=== PATIENT | male | born 1990 | race Caucasian/White ===

== ENCOUNTER 2023-11-01 09:35 | Inpatient (IN) | payer BC ==
[~2023-11-01] VITALS: Ht 180.3 cm; Wt 90.9 kg
[2023-11-01] VITALS (7 sets, daily range): BP systolic 171–193; BP diastolic 105–122; PULSE 78–111; TEMP 97.5–98.5
[~2023-11-01 09:35] MED LIST: DESYREL 100MG100 MG PO; DUO-KAPS1 CAP PO; FOLIC ACID 11 MG/TA1 PO; INDERAL 10MG10 MG PO; MOBIC 7.5MG7.5 MG PO; THIAMINE 1100 MG/TAB PO; Thiamine 100 MG TAB PO SCH; ZOLOFT 100MG100 MG PO
[2023-11-01 11:50] LABS: BASO # 0.1 K/mm3 (0.0-0.2); BASO % 0.5 % (0.0-2.0); EOS % 0.3 % (0.0-4.0); GRAN # 8.9 K/mm3 (1.4-6.5); GRAN % 81.3 % (42.2-75.2); HEMATOCRIT 37.3 % (42.0-52.0); HEMOGLOBIN 13.4 g/dl (13.5-18.0); LYMPH # 1.1 K/mm3 (1.2-3.4); LYMPH % 10.3 % (20.0-51.0); MEAN CELL VOLUME 91 fl (80.0-100.0); MEAN CORPUSCULAR HEMOGLOBIN 33 pg (27-31); MEAN CORPUSCULAR HGB CONC 36 g/dl (33.0-37.0); MEAN PLATELET VOLUME 8.7 fl (7.4-10.4); MONO # 0.8 K/mm3 (0.1-0.6); MONO % 7.1 % (1.7-9.3); PLATELET COUNT 196 K/mm3 (130-400); REDCELL DISTRIBUTION WIDTH-CV 16.1 % (11.5-14.5)
[2023-11-01] MEDS ORDERED: Ketorolac 15 MG/ML VIAL IV ONE (12:00)
[2023-11-01 12:08] LABS: ACETAMINOPHEN < 7.0 ug/mL (10-30); ALANINE AMINOTRANSFERASE 24 U/L (0-55); ALBUMIN 3.7 gm/dL (3.5-5.0); ALKALINE PHOSPHATASE 70 U/L (40-150); ANION GAP 12 mmol/L (7-16); AST,SGOT 42 U/L (5-34); BILIRUBIN,TOTAL 0.8 mg/dL (0.2-1.2); BLOOD UREA NITROGEN 6 mg/dL (9-21); CALCIUM 9.2 mg/dL (8.4-10.2); CARBON DIOXIDE 30 mmol/L (22-29); CHLORIDE 98 mmol/L (98-107); CREATININE, serum 0.79 mg/dL (0.72-1.25); GLUCOSE 110 mg/dL (70-99); POTASSIUM 3.1 mmol/L (3.5-4.5); SODIUM 140 mmol/L (136-145); TOTAL PROTEIN 6.9 gm/dL (6.2-8.1)
[2023-11-01 12:09] LABS: ALCOHOL(ethanol),MEDICAL < 10 mg/dL (0-10); SALICYLATE < 5.0 mg/dL (15.0-30.0)
[2023-11-01] MEDS ORDERED: Ondansetron 4 MG/2 ML VIAL IV ONE (12:30)
[2023-11-01] MEDS ORDERED: NS 1,000 ML IV ONE (12:30)
[2023-11-01] MEDS ORDERED: LORazepam 2 MG/ML 1 ML VIAL IV ONE (12:30)
[2023-11-01 12:56] LABS: COLLECTION METHOD CLEAN CATCH
[2023-11-01 13:17] LABS: TRICYCLIC ANTIDEPRESS URINE NEGATIVE (NEGATIVE)
[2023-11-01] MEDS ORDERED: Magnesium Sulfate 4% 50 ML IV ONE (13:30)
[2023-11-01] MEDS ORDERED: Nicotine 21 MG DAILY PATCH TD ONE (13:30)
[2023-11-01 13:32] LABS: URINE APPEARANCE Clear (CLEAR/HAZY); URINE COLOR Amber (YELLOW)
[2023-11-01 13:33] LABS: MUCOUS Present (NOT PRESENT); SQUAMOUS EPITHELIAL 0-2 /hpf (0-10); URINE BLOOD Negative (NEGATIVE); URINE GLUCOSE Negative (NEGATIVE); URINE KETONE Negative (NEGATIVE); URINE NITRATE POSITIVE (NEGATIVE); URINE PROTEIN(semi-quant) 1+ (BEGATIVE); URINE UROBILINOGEN 0.2 E.U/dL (0.2-1.0)
[2023-11-01] MEDS ORDERED: Mag/Al Hydrox/Simeth Susp 30 ML CUP PO PRN (14:30)
[2023-11-01] MEDS ORDERED: diazePAM 10 MG TAB PO SCH (14:30)
[2023-11-01] MEDS ORDERED: Ondansetron 4 MG/2 ML VIAL IV PRN (14:30)
[2023-11-01] MEDS ORDERED: LORazepam 1 MG TAB PO PRN (14:30)
[2023-11-01] MEDS ORDERED: Acetaminophen 500 MG TAB PO PRN (14:30)
[2023-11-01] MEDS ORDERED: LORazepam 2 MG/ML 1 ML VIAL IV PRN (14:30)
[2023-11-01] MEDS ORDERED: Polyethylene Glycol 3350 17 GM PDS PO PRN (14:30)
[2023-11-01] MEDS ORDERED: Potassium Bicarbonate/Citrate 20 MEQ Effervescent TAB PO SCH (16:30)
[2023-11-01] MEDS ORDERED: *Potassium Replacement Protocol MC SCH (16:30)
[2023-11-01] MEDS ORDERED: Multivitamin TAB PO SCH (17:00)
[2023-11-01] MEDS ORDERED: Folic Acid 1 MG,Thiamine 200 MG in NS 1,000 ML IV ONE (17:15)
[2023-11-01] MEDS ORDERED: NS 1,000 ML IV SCH (17:15)
[2023-11-01] MEDS ORDERED: hydrALAZINE 20 MG/ML 1 ML VIAL IV PRN (18:00)
[2023-11-01] MEDS ORDERED: amLODIPine 10 MG TAB PO ONE (18:00)
[2023-11-01] MEDS ORDERED: traZODone 100 MG TAB PO SCH (21:31)
[2023-11-01] MEDS ORDERED: Propranolol 10 MG TAB PO SCH (21:31)
[2023-11-01] MEDS ORDERED: Losartan 50 MG TAB PO SCH (21:35)
--- NOTE | 2023-11-01 22:00 | NUR ---
Patient assessed around 1934. Scored 12 on detox protocol, and given 1 mg Ativan per protocol. At this time, scored a 15. Called and got home medications resumed. Given medications and 2 mg Ativan per protocol. Continues on IV fluids per orders. Voices no further questions, needs, or concerns at this time. In bed with call light within reach. High fall risk precautions in place. Bed alarm on. Seizure precautions in place.
[2023-11-02] VITALS (19 sets, daily range): BP systolic 139–179; BP diastolic 83–119; PULSE 89–125; TEMP 97.8–99
--- NOTE | 2023-11-02 00:05 | NUR ---
Given PRN Appresoline for elevated BP. Given PRN Ativan per detox protocol.
--- NOTE | 2023-11-02 02:36 | NUR ---
Scored 12 on detox protocol. Given 1 mg PRN Ativan per protocol.
--- NOTE | 2023-11-02 06:37 | NUR ---
Patient has scored 7-16 on detox protocol, and received IV Ativan per protocol. Continues on Valium taper. IV fluids continue per orders. Voices no questions, needs, or concerns at this time. In bed with call light within reach. High fall risk precautions in place. Bed alarm on.
[2023-11-02 06:46] LABS: MAGNESIUM 2.1 mg/dL (1.6-2.6); POTASSIUM 3.2 mmol/L (3.5-4.5)
--- NOTE | 2023-11-02 06:50 | NUR ---
PATIENT ASLEEP, RESTING IN BED. CALL LIGHT WITHIN REACH, BED ALARM ON, FALL PRECAUTIONS IN PLACE.
[2023-11-02] MEDS ORDERED: Potassium Bicarbonate/Citrate 20 MEQ Effervescent TAB PO SCH (07:45)
--- NOTE | 2023-11-02 08:41 | NUR ---
Pt lying in bed with HOB raised. Bed alarm on, seizure precautions in place. Pt ambulates to bathroom with SBA. Morning medications administered. CIWA assessment completed. Pt has no other needs at this time.
[2023-11-02] MEDS ORDERED: Folic Acid 1 MG TAB PO SCH (09:00)
[2023-11-02] MEDS ORDERED: Nicotine 21 MG DAILY PATCH TD SCH (09:00)
[2023-11-02] MEDS ORDERED: Sertraline 100 MG TAB PO SCH (09:00)
[2023-11-02] MEDS ORDERED: amLODIPine 10 MG TAB PO SCH (09:00)
--- NOTE | 2023-11-02 10:57 | NUR ---
4 FAILED ATTEMPTS AT NEW IV ACCESS. [facility] CALLED AN LEFT VM FOR ASSISTANCE.
[2023-11-02] MEDS ORDERED: Ibuprofen 200 MG TAB PO ONE (12:15)
--- NOTE | 2023-11-02 12:46 | NUR ---
IV CONVERTED TO SL , RN CONFIRMED OK WITH
[2023-11-02] MEDS ORDERED: Lidocaine 5% Ointment 35.44 GM TUBE TP SCH (12:47)
[2023-11-02] MEDS ORDERED: MULTIPLE VITAMI1 CAP PO (13:02)
[2023-11-02] MEDS ORDERED: FOLIC ACID0.4 MG PO (13:02)
[2023-11-02] MEDS ORDERED: NATURE'S BLEND100 M2 PO (13:03)
--- NOTE | 2023-11-02 14:52 | NUR ---
D: Initial visit: Chronic Care Nurse stopped by room on rounds. Pt was resting and content. A: Pt has no needs right now. Originally from [place] and moved here with his so that she could go to school here. Pt appreciated the visit. P: Chronic Care Nurse informed pt that if he needed anything to let his nurse know. Chronic Care Nurse will follow up as needed.
--- NOTE | 2023-11-02 15:09 | NUR ---
MD NOTIFIED PATIENTS CALLED THIS RN INTO ROOM AND STATED PATIENT HAD PASSED OUT A FEW TIMES. PATIENT CIWA SCORED AND PATIENT CURRENTLY A 20. PER MD HE WILL ORDER CT HEAD.
--- NOTE | 2023-11-02 15:14 | NUR ---
UPON FLUSHING IV, SALINE WAS DRIPPING DOWN PATIENTS ARM. IV NO LONGER PATENT, AND REMOVED. (PICC TEAM CALLED, NO ANSWER AT THIS TIME) BOND WRITER CALLED AND IS SENDING ER NURSE FOR IV PLACEMENT. (PATIENT TOOK7 STICKS FOR EARLIER IV PLACEMENT THIS AM.
--- NOTE | 2023-11-02 15:24 | NUR ---
PATIENT IS SLOW TO RESPOND. PUPILS EQUAL AND REACTIVE TO LIGHT, BILATERAL HAND OPTICAL EFFECTS CAMERA OPERATOR EQUAL BUT WEAK. PATINET ABLE TO RECOGNIZE AND TELL STAFF WHO IS IS. STERILIZATION TECHNICIAN CALLED TO BEDSIDE FOR ASSESSMENT. STERILIZATION TECHNICIAN GIVEN REPORT BY THIS RN AND AT BEDSIDE, INCLUDING NOT LIMITED TO, IV ATIVAN Q2H, PRN HYDRALIZINE GIVEN, AND NO IMPROVEMENT INPATIENT CIWA SCORE OR BLOOD PRESSURES.
--- NOTE | 2023-11-02 15:30 | NUR ---
PATIENT HAS A RH 22G PLACED BY ED
--- NOTE | 2023-11-02 15:50 | NUR ---
PATIENT BACK FROM CT, PATIENT AWAKE AND ALERT, SITTING UP IN BED. ABLE TO CARRY A CONVERSATION. PATIENT STATES HE FEELS BETTER AT THIS TIME AND HIS COLOR AND MENTATION CONTINUE TO IMPROVE AT THIS TIME. CALL LIGHT WITHIN REACH, FALL PRECAUTIONS IN PLACE. PATIENTS HEADING HOME AT THIS TIME.
--- NOTE | 2023-11-02 16:15 | NUR ---
THIS RN UPDATED MD ABOUT PATIENT STATUS. PER MD IF PATINET IS TO BECOME AGITATED OR CIWA WORSEN CALL MD
--- NOTE | 2023-11-02 17:13 | NUR ---
side door worker and MATTEO StudentGilda, met with patient to discuss discharge planning. Patient reports she lives in [place] with his , Yuliet, P# [phone]. Patient reports he does not currently have a PCP and would like a list of options. Pharmacy is [facility]. No issues affording medications. [facility] is [facility]. No DME and reports to be independent with ADLS. Patient is able to transport himself to appointments. SW asked about the comment he had made upon admission about the crisis stabilization unit. Patient reports he would like to go to the stabilization unit upon discharge as his depression and anxiety have been bad lately and he has been coping with alcohol. SW provided [facility] Resource Guide, Mental Health Resources and Drug and Alcohol treatment options. Patient reports has had a therapist at [facility] and his medication was being managed there but he has missed several appointments. Patient reports the [facility]SU informed him they need a referral when he discharges so he can be seen there. SW will follow up with the CSU. MATTEO StudentGilda, contacted the CSU whom explained that when patient is ready for discharge to contact them so they can start the referral then the patient is able to walk into the clinic when he discharges. MATTEO updated the primary Shelia FELIPE. Discharge plan: Home
--- NOTE | 2023-11-02 18:35 | NUR ---
PATINET AWAKE AND ALERT, SITITNG UP IN BED. PATIENT DENEIS ANY NEEDS AT THIS TIME AND SEEMS TO BE IN A PLEASANT MOOD. DETOX PROTOCOL USED(SEE CHARTING). PATIENTS AT BEDSIDE.
--- NOTE | 2023-11-02 21:53 | NUR ---
Patient assessed around 2034. Scored 18 on detox protocol and given PRN Ativan per orders. Peripheral IV to right hand with IV fluids running per orders. Denies SOB and dyspnea. LS CTA. Telemetry in place. BSAx4. Reports diarrhea earlier today. Voices no questions, needs, or concenrs at this time. In bed with call light within reach. High fall risk precautions in place. Bed alarm on.
--- NOTE | 2023-11-02 22:50 | NUR ---
Scored 13 on detox protocol. Given PRN Ativan and scheduled Valium.
[2023-11-03] VITALS (474 sets, daily range): BP systolic 96–167; BP diastolic 67–129; PULSE 78–115; TEMP 97.4–98.5; O2SAT 78–100
--- NOTE | 2023-11-03 06:11 | NUR ---
Patient has received scheduled Valium taper and PRN Ativan per detox protocol as ordered during the night. Has not required any PRN Appresoline this shift, as he did not meet the parameters for medication. Continues on IV fluids per orders. Voices no questions, needs, or concerns at this time. In bed with call light within reach. High fall risk precautions in place. Bed alarm on.
--- NOTE | 2023-11-03 06:45 | NUR ---
BEDSIDE SHIFT REPORT COMPLETE. PATINET ASLEEP, RESTING IN BED. CALL LIGHT WITHIN REACH. BED ALARM ON.
--- NOTE | 2023-11-03 08:30 | NUR ---
PATIENTS JUST AT BEDSIDE, THIS RN INFORMED HER THAT PATIENT HAS BEEN TRYING TO FIGURE OUT HIS BED ALARM, AND HAS ASKED STAFF TO TURN IT OFF MULTIPLE TIMES. PATENT HAS BEEN EDUCATED ON REASONS FOR BED ALARM. CALL GWEN PAREDES, FALL PRCAUTIONS IN PLACE.
--- NOTE | 2023-11-03 10:50 | NUR ---
MARCELLO SCORING 24 ON CIWA SCALE. PATIENT IS NOW EGDE OF BED. COMPLAINING OF NAUSEA, SEVERE HEAD FULLNESS, AGITATION, ANXIETY WITH OBVIOUS TREMORS. PATIENT PRESENTS MOIST TO TOUCH (FOREHEAD) , HTN AND TACHYCARDIA. MD INFORMED AND STATED TO KEEP HIM UPDATED. THIS RN SPOKE WITH THE PHARMACIST ON UNIT ABOUT AMOUNT OF ATIVAN GIVEN, AND IF OKAYED TO PROCEED WITH CURRENT 4MG IV DOSE (DOSE PER PROTOCOL AT THIS TIME.) BOTH MD AND PHARMACIST OKAYED RN TO ADMINISTER 4MG IV ATIVAN PER PROTOCOL.
--- NOTE | 2023-11-03 11:19 | NUR ---
D/T PATINET STATUS AND PATIENT TURNING OFF HIS OWN TELESITTER, CORE LOADER CALLED FOR TELESITTER AND NO AVAILABILITY AT THIS TIME.
--- NOTE | 2023-11-03 12:03 | NUR ---
PHYSICIAN CALLED AND INFORMED THIS RN REASSESSED PATIENT, SO WE CAN GET HIS DETOX PROTOCOL BACK ON SCHEDULE. MARCELLO RECIEVED 4MG IV ATIVAN, AT 1104 D/T A CIWA SCORE OF 24. REASSESSMENT PATIENT IS STIL HYPERTENSIVE AND TACHYCARDIC, AND HIS CIWA SCORE IS 17, WHICH REQUIRES 2 MG IV ATIVAN.HOSPITALIST ASK IF IT IS SAFE TO ADMINISTER. PER HOSPITALIST HOLD OFF ON IV ATIVAN AND REASSESS IN ONE HOUR.
--- NOTE | 2023-11-03 12:54 | NUR ---
MARCELLO AGAIN EDUCATED ON FALL RISK AND SAFETY RISK OF HIM DETATCHING HIS OWN IV LINE FROM HIS IV, AND RE-ATATCHING IT. PATIENT PLEASANT, HOWEVER IS DISSIMISSIVE OF EDUCATION.
--- NOTE | 2023-11-03 12:56 | NUR ---
PATIENT HAS BEEN EDUCATED MULTIPLE TIMES REGADING FALL RISK AND TURNING OFF HIS BEDALARM AND WALKING WIHTOUT STAFF ASSISTANCE. MARCELLO CONTINUES TO DO SO AND DISREGARDS STAFF EDUCATION.
[2023-11-03] MEDS ORDERED: hydrALAZINE 10 MG TAB PO PRN (13:00)
--- NOTE | 2023-11-03 13:04 | NUR ---
CIWA SCORE CURRENTLY [address] HOLCOMB INFORMED OF PATIENT REMOVING OWN IVF AND TURNING OFF BED ALARM, AND SCORE CURRENT CIWA SCORE AND VITALS. MD INFORMED PATIENT SEEMS DISTANT AND SLOW TO ANSWER QUESTIONS. PER PATINET TO TRANSFER DOWN TO ICU, RECEPTIONIST NURSE AND HOUSE REGISTRY RN AWARE PER PHYSICAIN RN TO ADMINISTER 2MG IV ATIVAN PER PROTOCOL.
--- NOTE | 2023-11-03 13:30 | NUR ---
>SEE NOTED >>> APROX 1305 AFTER ENDING CALL WITH PHYSICIAN, WINDOWS SOFTWARE ENGINEER THAT WAS AT PATIENT BEDSIDE, INFORMED THIS RN THAT PATIENT WAS "TENSING." UPON ENTERING ROOM RN FOUND MARCELLO LYING FLAT IN BED. PATIENTS ARMS STRAIGHT AND STIFF AT HIS SIDES, HANDS BALLED INTO TIGHT FISTS. PATIENT ROLLED TO L SIDE, SUCTION PLACED BY PCT IN CASE USE NEEDED. WINDOWS SOFTWARE ENGINEER KEEPING PATIENT ON HIS SIDE WHILE PRINCIPAL NETWORK ARCHITECT WAS ATTEMPTING TO GET PATIENT VSS. ATIVAN 2MG IV PULLED AT 1306 AND ADMINISTERED AT 1307. PRINCIPAL NETWORK ARCHITECT AT BEDSIDE WITH THIS RN, WINDOWS SOFTWARE ENGINEER AND PCT. PATIENT VSS AT HIS BASELINE. O2 93% RA. PATIENT DESATTED FOR LESS THAN 1 MINUTE TO 89%, HOWEVR CLIMBED BACK TO 94% BEFORE O2 CANULLA PLACED FOR TRANSFER. PATIENT DID NOT RESPOND TO STAFF DURING THIS TIME. THIS RN CALLED REWARDS CONSULTANT JULIANN, ON THE WAY DOWN TO ICU AT 1314. PATIENT ARRIVED TO ICU AT 1316. BEDSIDE REPORT GIVEN TO REWARDS CONSULTANT JULIANN. PATIENTS BELONGINGS BPROUGHT BY PCT.
--- NOTE | 2023-11-03 13:47 | NUR ---
1320 PT BROUGHT TO ICU VIA BED BY DAVID WANG AND TECH. PT NOTED TO BE ALERT AND ABLE TO STATE NAME AND THAT HE IS IN [place] IN THE HOSPITAL. PT ABLE TO FOMMANDS BUT APPEARS WITHDRAWN W/ FLAT AFFECT. NO DRIPS INFUSING TO PERIPHERAL IV IN L HAND. OXYGEN DISCONTINUED AFTER TRANSFER, O2 SAT 96% ON ROOM AIR. SEIZURE PADS AND BED ALARM IN PLACE FOR PT SAFETY.
--- NOTE | 2023-11-03 14:00 | NUR ---
THIS RN CALLED AND SPOKE WITH PATIENTS DEEPAK. PATIENTS INFORMED OF PATIENTS TRANSFER TO ICU AND WHAT OCCURED LEADING UP TO TRANSFER. PATIENTS STATED SHE WILL VISIT PATIENT LATER. JAYME HAS CURRENT ICU NURSE CARING FOR THE PATIENT AND ROOM NUMBER.
--- NOTE | 2023-11-03 19:00 | NUR ---
REPORT RECEIVED FROM DAVID HUMPHREYS. PATIENT RESTING IN BED WATCHING TV WITH FAMILY AT BEDSIDE. NO SIGNS OF ACUTE DISTRESS NOTED AT THIS TIME
[2023-11-03] MEDS ORDERED: Propranolol 20 MG TAB PO SCH ×2 (21:00→21:54)
[2023-11-04] VITALS (45 sets, daily range): BP systolic 112–128; BP diastolic 63–72; PULSE 78–83; TEMP 97.6–98.7; O2SAT 72–100
[2023-11-04 04:42] LABS: CALCIUM 9.1 mg/dL (8.4-10.2); CREATININE, serum 0.8 mg/dL (0.72-1.25); POTASSIUM 4.1 mmol/L (3.5-4.5)
--- NOTE | 2023-11-04 10:11 | NUR ---
PATIENT REMAINS ALERT AND IN BED. OCCASIONALLY RESTLESS. CIWA AND SEIZURE PRECAUTIONS STILL IN PLACE. NO FLUIDS RUNNING AT THIS TIME. TWO IV'S REMAIN IN PLACE. NO ACUT EVENTS OVERNIGHT.
[2023-11-04] MEDS ORDERED: INDERAL 10MG10 MG PO (10:28)
[2023-11-04] MEDS ORDERED: NORVASC 10MG10 MG PO (10:29)
[2023-11-04] MEDS ORDERED: COZAAR 50MG50 MG/TAB PO (10:30)
[2023-11-04] MEDS ORDERED: ATIVAN 1MG T1 MG/TAB PO (10:31)
[2023-11-04] MEDS ORDERED: PEPCID 20MG TAB20 MG PO (10:35)
--- NOTE | 2023-11-04 11:49 | NUR ---
While getting pt's paperwork ready for discharge pt's came to this nurse and stated that pt is unresponsive. Upon entering room pt was sitting on edge of bed after getting himself dressed; appeared to be staring blankly at the floor and would not follow any commands. Dr. Mehran Mejia called and notified. While waiting for Dr. Mejia to arrive this nurse and DAVID Gray assisted pt to a supine position in the bed with HOB elevated. Pt was connected to monitor. Heart rate in the 80's, slightly elevated at 141/113, SPO2 100% on room air. Dr. Mejia arrived to pt's room and evaluated pt. During assessment pt reccurently would tense up whole body and not follow commands. Would open eyes every few seconds and look around then continue to tense up. Dr. Mejia states that pt is having panic attacks. 1mg ativan given IVP for anxiety. Pt's Dora present during events. Dr. Mejia states pt is still cleared for discharge but recommends that pt proceeds to [facility] for panic attacks. Pt's contacted [facility] and states they can not guarantee a bed at this time but they are okay to proceed there upon discharge. Pt's agreeable to plan of care. Dischage paperwork will be reprinted up updated dischage instructions.
[2023-11-04] MEDS ORDERED: KEPPRA 500MG500 MG PO (12:14)
--- NOTE | 2023-11-04 12:55 | NUR ---
Pt discharged with plans for to take him to [facility] for panic attacks and mental health eval. Pt alert and oriented upon discharge. PIV's removed x2. Pt verbalized understanding of dischage plan and willing to sign discharge paperwork but state's "I'm leaving here to go find a better doctor." Pt advised to proceed to [facility]. Pt declined wheelchair and walked to hospital exit with this RN and left via POV with his . Pt in possession of all belongings upon discharge.
--- NOTE | 2023-11-04 16:16 | NUR ---
SW met with patient, he wanted to voice concern about his discharge status and inquiry about [facility] with [facility]. Patient expressed that he does not feel that his dx is correct and shared that he will return to hospital for another opinion. MATTEO provided patient and his spouse that was present information on [facility] and medical clearance that was provided for his entry. Patient reports that he is not going to go to [facility] and will return to hospital as he believes that he is suffering with seizures with the withdrawl. MATTEO would update the DR on patient notification. No further needs from SW team. Intake declined.
== END 2023-11-04 12:56 | DRG 897 ==
LOC: COL.ER 09:35 → MEDICAL 13:25 → ICU 13:25 → MEDICAL 21:00 → ICU 11-03 13:20
PROVIDERS: Internal Medicine; Nurse Practitioner; Nurse Practitioner Family; ADMIT Internal Medicine
DX: F10.231 Alcohol dependence with withdrawal delirium (principal); F32.A Depression, unspecified; F41.9 Anxiety disorder, unspecified; I10 Essential (primary) hypertension; F17.210 Nicotine dependence, cigarettes, uncomplicated; Z20.822 Contact with and (suspected) exposure to COVID-19; D64.9 Anemia, unspecified; F12.90 Cannabis use, unspecified, uncomplicated; E83.42 Hypomagnesemia; F41.0 Panic disorder [episodic paroxysmal anxiety]; Y90.9 Presence of alcohol in blood, level not specified; G40.A09 Absence epileptic syndrome, not intractable, without status epilepticus; E87.6 Hypokalemia; Z90.49 Acquired absence of other specified parts of digestive tract; Z23 Encounter for immunization
CPT/HCPCS: J0360; J0780; J1650; J1885; J2060; J2405; J3411; J3475; J7030